=== PATIENT | female | born 1970 | race American Indian/Alaskan Native ===

== ENCOUNTER 2017-08-13 13:11 | Outpatient (CLI) | payer OTHER ==
--- NOTE | 2017-08-13 16:23 | Mammography Report ---
BILATERAL DIGITAL SCREENING MAMMOGRAM with CAD: 08/13/17 13:11:00 CLINICAL: Routine screening. COMPARISON:None available. FINDINGS: There are bilateral scattered fibroglandular densities. A partially circumscribed oval right upper outer focal asymmetry requires additional imaging.No architectural distortion or suspicious calcifications.The left breast is negative. IMPRESSION: Right asymmetry requiring further workup. BI-RADS CATEGORY: 0 -- Additional Imaging Evaluation Required RECOMMENDATION: Recall for right spot magnification views and right breast ultrasound if needed. ACR BI-RADS MAMMOGRAPHIC CODES: 0 = Needs additional imaging evaluation; 1 = Negative; 2 = Benign; 3 = Probably benign; 4 = Suspicious; 5 = Malignant; 6 = Known biopsy-proven malignancy COMMENT: 1. Dense breast tissue, i.e., adenosis, fibrocystic changes, etc., may obscure an underlying neoplasm. 2. Approximately 10% of cancers are not detected with mammography. 3. A negative mammography report should not delay biopsy if a clinically suspicious mass is present. COMMENT: Patient follow-up letters are generated via our [employer] application.
== END 2017-08-13 13:12 | disposition home or self-care (01) ==
LOC: SPVWC 13:11
PROVIDERS: ATTEND Family Medicine
DX: Z12.31 Encounter for screening mammogram for malignant neoplasm of breast (principal)
CPT/HCPCS: 77067

== ENCOUNTER 2017-09-04 09:52 | Outpatient (CLI) | payer OTHER ==
--- NOTE | 2017-09-04 11:29 | Mammography Report ---
RIGHT DIGITAL DIAGNOSTIC MAMMOGRAM and RIGHT BREAST ULTRASOUND: 09/04/17 09:52:00 CLINICAL: Recalled for asymmetry. COMPARISON:08/13/17 screening FINDINGS: Spot magnification MLO and CC views were performed and demonstrate a persistent oval smooth 1 cm low-density asymmetry. Two smaller similar circumscribed densities are identified more lateral. Ultrasound of the upper outer right breast was performed and demonstrated a lymph node with central fat a benign morphology at 10 o'clock 9 cm from the nipple. It measures 1.0 x 0.5 x 0.9 cm and correlates with the largest density on the mammogram. An oval smooth complex cyst at 10 o'clock 10 cm from the nipple measures 5 x 2 x 5 mm and an oval complex cyst at 10 o'clock 9 cm from the nipple measures 3 x 2 x 2 mm. No solid mass or shadowing. IMPRESSION: A benign right axillary lymph node and 2 probably benign complex cysts at 10 o'clock 10 cm from nipple a 9 cm from the nipple.These complex cysts correlate with mammographic densities and I suspect that these may be benign oil cysts. BI-RADS CATEGORY: 3 - - Probably Benign RECOMMENDATION: Six month followup right mammogram and right breast ultrasound if needed. ACR BI-RADS MAMMOGRAPHIC CODES: 0 = Needs additional imaging evaluation; 1 = Negative; 2 = Benign; 3 = Probably benign; 4 = Suspicious; 5 = Malignant; 6 = Known biopsy-proven malignancy COMMENT: 1. Dense breast tissue, i.e., adenosis, fibrocystic changes, etc., may obscure an underlying neoplasm. 2. Approximately 10% of cancers are not detected with mammography. 3. A negative mammography report should not delay biopsy if a clinically suspicious mass is present. COMMENT: Patient follow-up letters are generated via our [employer] application.
== END 2017-09-04 09:53 | disposition home or self-care (01) ==
LOC: SPVWC 09:52
PROVIDERS: ATTEND Family Medicine
DX: N60.01 Solitary cyst of right breast (principal)